=== PATIENT | male | born 1965 | race Caucasian/White ===

== ENCOUNTER → 2018-11-18 | Outpatient (CLI) | payer BC ==
[~2018-11-18] MED LIST: ZOLPIDEM 5 MG TABLET. PO ONE
--- NOTE | 2018-11-19 10:58 | SLEEP ---
DATE OF STUDY: 11/18/2018 ATTENDING PHYSICIAN: Dr. Len Fisher. The patient is 53-year-old who weighs 173 pounds with a BMI of 27. The patient's Storrs Mansfield score was 5. 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 The patient underwent sleep study at [facility]. During the night study, the patient spent 411 minutes in bed and slept for 360 minutes with a sleep efficiency of 88%. Sleep latency was 18 minutes with a REM latency of 187 minutes. Overall, sleep architecture showed normal stage 1 sleep, increased stage 2 sleep, absent slow wave sleep and reduced REM sleep, which was 6% of the total sleep time. During the night study, the patient had 6 obstructive apneas, 10 mixed apneas, 1 central apnea and 3 hypopneas. The patient's apnea-hypopnea index was 3 per hour, supine index 7 per hour and a REM index of 6 per hour. EKG monitoring revealed normal sinus rhythm, average heart rate 60 beats per minute, no sustained arrhythmias observed. Nocturnal oximetry study revealed a mean oxygen saturation of 96% with the lowest of 88%. 3.9% of the time oxygen saturation remained between 80% and 89%. PLMS seen at index of 5 per hour and none caused EEG arousals. Due to low AHI, the patient did not meet the split night criteria for CPAP initiation. IMPRESSION: 1. No clinically significant sleep disorder breathing. The patient's AHI for the entire night was only 3 per hour. 2. No clinically significant nocturnal hypoxia. 3. No clinically significant PLMS. RECOMMENDATIONS: 1. The patient did not meet the criteria for CPAP initiation due to low AHI. 2. Weight loss to ideal body weight is advised. 3. Avoid [employer] depressants. ROSANGELA MEDINA MD DR: FELIBERTO/loida JOB#: [id number] / [id number] LEN Hood MD
== END | disposition home or self-care (01) ==
LOC: SLPLAB 18:36
PROVIDERS: ATTEND Family Medicine
DX: R53.83 Other fatigue (principal)
CPT/HCPCS: 95810

== ENCOUNTER → 2020-12-02 | Outpatient (CLI) | payer BC ==
--- NOTE | 2020-12-02 14:59 | RAD ---
Bilateral lower extremity venous duplex study 12/02/2020 1:38 PM Clinical History: Reason: LEG SWELLING / Spl. Instructions: / History: Technique: Using a combination of real time ultrasound imaging and color-flow and pulse Doppler imagi ng techniques along with graded compression and augmentation, duplex evaluation of the deep venous sy stem of the both lower extremities was performed. Multiple images were obtained. Findings: There is no sonographic evidence of deep venous thrombosis involving the visualized deep ve nous structures of either lower extremity. Impression: No evidence of deep venous thrombosis involving either lower extremity Electronically signed by: Elmer Dong MD (12/02/2020 2:57 PM) [id number]
== END ==
LOC: US 08:40
PROVIDERS: ATTEND Nurse Practitioner Gerontology
DX: R22.43 Localized swelling, mass and lump, lower limb, bilateral (principal)
CPT/HCPCS: 93970